=== PATIENT | male | born 1990 | race Caucasian/White ===

== ENCOUNTER → 2020-12-06 | Outpatient (CLI) | payer OTHER ==
[~2020-12-06] MED LIST: AMOXICILLIN500 MG PO; ANTIBIOTIC; HYDROCODONE BIT1 T11 PO; KEFLEX500 MG PO; NKHM; PENICILLIN VK500 MG PO; VICODIN 5/500 505 MG PO; VICODIN ES 7501 TAB PO; ZOFRAN ODT4 MG SL
[2020-12-06 14:26] LABS: HEMATOCRIT 50.5 % (42.0-52.0); MEAN CELL VOLUME 90.3 fl (80.0-94.0); MEAN CORPUSCULAR HGB 31.1 pg (27.0-31.0); MEAN CORPUSCULAR HGB CONC 34.5 g/dl (33.0-37.0); MEAN PLATELET VOLUME 9.1 fl (9.6-12.3); RED BLOOD COUNT 5.59 10*6/uL (4.50-5.90); RED CELL DISTRI WIDTH 12.2 % (0-14.5); WHITE BLOOD COUNT 9.8 10*3/uL (4.8-10.8)
[2020-12-06 15:01] LABS: VITAMIN D, 25-HYDROXY 20.7 ng/mL (30-100)
[2020-12-06 15:03] LABS: ALBUMIN 4.2 gm/dl (3.1-4.5); ALKALINE PHOSPHATASE 80 U/L (45-117); BUN 10 mg/dl (7-24); CHLORIDE 108 mmol/L (98-107); CHOLESTEROL 170 mg/dL (<200); CREATININE 1.02 mg/dL (0.70-1.30); HDL CHOLESTEROL 42 mg/dl (40-60); LDL CHOLESTEROL 92 mg/dL (9-159); POTASSIUM 3.8 mmol/L (3.5-5.1); SGOT/AST 18 IU/L (3-35); SGPT/ALT 50 U/L (12-78); SODIUM 142 mmol/L (136-145); TOTAL PROTEIN 7.8 gm/dL (6.4-8.2); TRIGLYCERIDES 178 mg/dl (<150); VLDL CHOLESTEROL 36 mg/dL (6-40)
== END | disposition home or self-care (01) ==
LOC: LAB 14:10
PROVIDERS: ATTEND Family Medicine
DX: K21.9 Gastro-esophageal reflux disease without esophagitis (principal); N39.0 Urinary tract infection, site not specified; N20.0 Calculus of kidney; E78.00 Pure hypercholesterolemia, unspecified; E55.9 Vitamin D deficiency, unspecified; R63.5 Abnormal weight gain

== ENCOUNTER → 2021-02-20 | Outpatient (CLI) | payer OTHER ==
[2021-02-21 08:08] LABS: PROLACTIN 10.3 ng/mL (4.0-15.2)
[2021-02-24 11:06] LABS: TESTOSTERONE FREE, (DIRECT) 8.1 pg/mL (8.7-25.1)
== END | disposition home or self-care (01) ==
LOC: LAB 16:27
PROVIDERS: ATTEND Family Medicine
DX: N64.4 Mastodynia (principal)

== ENCOUNTER → 2021-10-17 | Outpatient (CLI) | payer OTHER ==
[~2021-10-17] MED LIST changes: +DECADRON6 M1 PO; +OMEPRAZOLE40 MG PO
== END | disposition home or self-care (01) ==
LOC: RAD 16:58
PROVIDERS: ATTEND Family Medicine
DX: I82.401 Acute embolism and thrombosis of unspecified deep veins of right lower extremity (principal)

== ENCOUNTER → 2021-12-30 | Outpatient (CLI) | payer OTHER ==
[2021-12-30 13:38] LABS: HEMATOCRIT 46.3 % (42.0-52.0); MEAN CORPUSCULAR HGB 31.4 pg (27.0-31.0); MEAN CORPUSCULAR HGB CONC 35.6 g/dl (33.0-37.0); MEAN PLATELET VOLUME 9.4 fl (9.6-12.3); RED BLOOD COUNT 5.26 10*6/uL (4.50-5.90); RED CELL DISTRI WIDTH 12.5 % (0-14.5); WHITE BLOOD COUNT 8.1 10*3/uL (4.8-10.8)
[2021-12-30 13:47] LABS: INTERNATIONAL NORM RATIO 2.2 (2.0-3.5)
[2021-12-30 13:56] LABS: ALKALINE PHOSPHATASE 69 U/L (45-117); BUN 11 mg/dl (7-24); CHLORIDE 108 mmol/L (98-107); CREATININE 1.02 mg/dL (0.70-1.30); POTASSIUM 3.9 mmol/L (3.5-5.1); SGOT/AST 33 IU/L (3-35); SGPT/ALT 70 U/L (12-78); SODIUM 142 mmol/L (136-145); TOTAL PROTEIN 7.6 gm/dL (6.4-8.2)
== END | disposition home or self-care (01) ==
LOC: LAB 13:23
PROVIDERS: ATTEND Family Medicine
DX: I26.99 Other pulmonary embolism without acute cor pulmonale (principal); I82.409 Acute embolism and thrombosis of unspecified deep veins of unspecified lower extremity; Z79.01 Long term (current) use of anticoagulants

== ENCOUNTER → 2022-01-14 | Outpatient (CLI) | payer OTHER | END | disposition home or self-care (01) | LOC: RAD 14:28 | PROVIDERS: ATTEND Chiropractor Orthopedic | DX: M99.03 Segmental and somatic dysfunction of lumbar region (principal) ==

== ENCOUNTER → 2023-03-19 | Outpatient (CLI) | payer OTHER ==
[~2023-03-19] MED LIST changes: +IBU800 MG PO
== END | disposition home or self-care (01) ==
LOC: ORTHO 00:56
PROVIDERS: ATTEND Orthopaedic Surgery
DX: S62.354D Nondisplaced fracture of shaft of fourth metacarpal bone, right hand, subsequent encounter for fracture with routine healing (principal); X58.XXXD Exposure to other specified factors, subsequent encounter

== ENCOUNTER → 2023-03-31 | Outpatient (CLI) | payer OTHER | END | disposition home or self-care (01) | LOC: ORTHO 00:40 | PROVIDERS: ATTEND Orthopaedic Surgery | DX: S62.354D Nondisplaced fracture of shaft of fourth metacarpal bone, right hand, subsequent encounter for fracture with routine healing (principal); X58.XXXD Exposure to other specified factors, subsequent encounter ==

== ENCOUNTER 2023-07-13 22:41 | Emergency (ER) | payer OTHER ==
[~2023-07-13] VITALS: Ht 193 cm; Wt 136.1 kg
== END 2023-07-14 02:17 | disposition home or self-care (01) ==
LOC: ED 22:41
DX: T78.40XA Allergy, unspecified, initial encounter (principal); R22.9 Localized swelling, mass and lump, unspecified; L50.9 Urticaria, unspecified; Z90.89 Acquired absence of other organs; F17.200 Nicotine dependence, unspecified, uncomplicated; Z86.16 Personal history of COVID-19; X58.XXXA Exposure to other specified factors, initial encounter

== ENCOUNTER 2024-02-23 09:25 | Emergency (ER) | payer OTHER ==
[~2024-02-23] VITALS: Ht 193 cm; Wt 136.1 kg
[2024-02-23] MEDS ORDERED: Ketorolac Tromethamine 30 MG/ML VIAL IV ONE (11:00)
[2024-02-23] MEDS ORDERED: SODIUM CHLORIDE 0.9% 1,000 ML IV ONE (11:00)
[2024-02-23 11:21] LABS: BASO % 0.1 % (0.0-1.0); EOS # 0.1 10*3/uL (0.0-0.4); EOS % 1.2 % (1.0-4.0); HEMATOCRIT 48.1 % (42.0-52.0); LYMPH # 3.5 10*3/uL (1.3-4.4); LYMPH % 39.1 % (27.0-41.0); MEAN CELL VOLUME 93.4 fl (80.0-94.0); MEAN CORPUSCULAR HGB 31.8 pg (27.0-31.0); MEAN CORPUSCULAR HGB CONC 34.1 g/dl (33.0-37.0); MEAN PLATELET VOLUME 9.5 fl (9.6-12.3); MONO # 0.6 10*3/uL (0.1-1.0); MONO % 7.1 % (3.0-9.0); NEUT # 4.7 10*3/uL (2.3-7.9); NEUT % 52.3 % (47.0-73.0); PLATELET COUNT AUTOMATED 250 10*3/uL (130-400); RED BLOOD COUNT 5.15 10*6/uL (4.50-5.90); RED CELL DISTRI WIDTH 12.4 % (0-14.5)
[2024-02-23 11:51] LABS: ALKALINE PHOSPHATASE 73 U/L (46-116); BUN 12 mg/dl (9-23); CHLORIDE 106 mmol/L (98-107); LIPASE 45 U/L (12-53); POTASSIUM 4.1 mmol/L (3.4-5.1); SGPT/ALT 74 U/L (5-49); TOTAL PROTEIN 7.3 gm/dL (6.0-8.0)
[2024-02-23 11:55] LABS: BILIRUBIN Negative (Negative); BLOOD Negative (Negative); CLARITY Clear (Clear); COLOR Yellow (Yellow); GLUCOSE Negative (Negative); KETONE Negative (Negative); LEUKO ESTERASE Negative (Negative); NITRITE Negative (Negative); PH 5.5 (4.5-8.0); SPECIFIC GRAVITY 1.025 (1.001-1.030)
[2024-02-23 12:27] LABS: WBC 0-2 wbc/hpf (0-5)
[2024-02-23] MEDS ORDERED: MIRALAX POWDER17 G1 PO (12:35)
== END 2024-02-23 12:44 | disposition home or self-care (01) ==
LOC: ED 09:25
PROVIDERS: Internal Medicine
DX: K59.00 Constipation, unspecified (principal); R11.2 Nausea with vomiting, unspecified; Z79.899 Other long term (current) drug therapy; Z87.891 Personal history of nicotine dependence

== ENCOUNTER 2024-02-27 13:29 | Emergency (ER) | payer OTHER ==
[~2024-02-27] VITALS: Ht 193 cm; Wt 136.1 kg
[~2024-02-27 13:29] MED LIST changes: +MIRALAX POWDER17 G1 PO
[2024-02-27 14:49] LABS: BASO % 0.1 % (0.0-1.0); EOS # 0.1 10*3/uL (0.0-0.4); EOS % 1.2 % (1.0-4.0); HEMATOCRIT 50.8 % (42.0-52.0); LYMPH # 3.6 10*3/uL (1.3-4.4); LYMPH % 33.8 % (27.0-41.0); MEAN CELL VOLUME 94.8 fl (80.0-94.0); MEAN CORPUSCULAR HGB 31.9 pg (27.0-31.0); MEAN CORPUSCULAR HGB CONC 33.7 g/dl (33.0-37.0); MEAN PLATELET VOLUME 9.2 fl (9.6-12.3); MONO # 0.8 10*3/uL (0.1-1.0); MONO % 7.8 % (3.0-9.0); NEUT # 6.1 10*3/uL (2.3-7.9); NEUT % 56.9 % (47.0-73.0); PLATELET COUNT AUTOMATED 256 10*3/uL (130-400); RED BLOOD COUNT 5.36 10*6/uL (4.50-5.90); RED CELL DISTRI WIDTH 12.3 % (0-14.5); WHITE BLOOD COUNT 10.7 10*3/uL (4.8-10.8)
[2024-02-27 15:10] LABS: ALKALINE PHOSPHATASE 71 U/L (46-116); BUN 7 mg/dl (9-23); CHLORIDE 105 mmol/L (98-107); LIPASE 44 U/L (12-53); SGPT/ALT 90 U/L (5-49); TOTAL PROTEIN 7.3 gm/dL (6.0-8.0)
[2024-02-27] MEDS ORDERED: CYCLOBENZAPRINE5 M3 PO (15:40)
== END 2024-02-27 16:08 | disposition home or self-care (01) ==
LOC: ED 13:29
PROVIDERS: Internal Medicine
DX: R10.9 Unspecified abdominal pain (principal); F17.200 Nicotine dependence, unspecified, uncomplicated; Z86.718 Personal history of other venous thrombosis and embolism; Z90.89 Acquired absence of other organs

== ENCOUNTER 2024-07-17 12:09 | Emergency (ER) | payer SELFPAY ==
[~2024-07-17] VITALS: Ht 195.5 cm; Wt 145.1 kg
[~2024-07-17 12:09] MED LIST changes: +CYCLOBENZAPRINE5 M3 PO
[2024-07-17] MEDS ORDERED: TOPCARE OMEPRAZ20 MG PO (12:27)
[2024-07-17] MEDS ORDERED: GOOD NEIGHBOR L10 MG PO (12:27)
[2024-07-17 12:59] LABS: BASO % 0.1 % (0.0-1.0); EOS # 0.1 10*3/uL (0.0-0.4); EOS % 1.2 % (1.0-4.0); HEMATOCRIT 49.3 % (42.0-52.0); LYMPH # 4.3 10*3/uL (1.3-4.4); LYMPH % 37.4 % (27.0-41.0); MEAN CELL VOLUME 90.8 fl (80.0-94.0); MEAN CORPUSCULAR HGB CONC 35.3 g/dl (33.0-37.0); MEAN PLATELET VOLUME 9.3 fl (9.6-12.3); MONO # 0.7 10*3/uL (0.1-1.0); NEUT # 6.4 10*3/uL (2.3-7.9); NEUT % 55.1 % (47.0-73.0); PLATELET COUNT AUTOMATED 256 10*3/uL (130-400); RED BLOOD COUNT 5.43 10*6/uL (4.50-5.90); RED CELL DISTRI WIDTH 12.6 % (0-14.5); WHITE BLOOD COUNT 11.6 10*3/uL (4.8-10.8)
[2024-07-17 13:15] LABS: BUN 13 mg/dl (9-23); CHLORIDE 105 mmol/L (98-107)
[2024-07-17] MEDS ORDERED: PREDNISONE20 M1 PO (13:27)
[2024-07-17] MEDS ORDERED: AVPAK AZITHROM250 M1 PO (13:27)
[2024-07-17] MEDS ORDERED: AZITHROMYCIN 250 MG TAB PO ONE (13:30)
[2024-07-17] MEDS ORDERED: methylPREDNISolone sod succ 125 MG VIAL IM ONE (13:30)
== END 2024-07-17 13:33 | disposition home or self-care (01) ==
LOC: ED 12:09
PROVIDERS: Nurse Practitioner Family
DX: J40 Bronchitis, not specified as acute or chronic (principal); R07.89 Other chest pain; F17.200 Nicotine dependence, unspecified, uncomplicated; F12.90 Cannabis use, unspecified, uncomplicated; Z86.718 Personal history of other venous thrombosis and embolism; Z90.89 Acquired absence of other organs

== ENCOUNTER 2024-12-12 16:33 | Emergency (ER) | payer SELFPAY ==
[~2024-12-12] VITALS: Ht 193 cm; Wt 154.2 kg
[~2024-12-12 16:33] MED LIST changes: +AVPAK AZITHROM250 M1 PO; +GOOD NEIGHBOR L10 MG PO; +PREDNISONE20 M1 PO; +TOPCARE OMEPRAZ20 MG PO
== END 2024-12-12 19:39 | disposition home or self-care (01) ==
LOC: ED 16:33
DX: S09.8XXA Other specified injuries of head, initial encounter (principal); M54.2 Cervicalgia; W22.03XA Walked into furniture, initial encounter; Y93.89 Activity, other specified; Y92.89 Other specified places as the place of occurrence of the external cause; Y99.8 Other external cause status